=== PATIENT | female | born 1980 | race Caucasian/White ===

== ENCOUNTER 2024-09-08 09:07 | Emergency (ER) | payer MEDICAID ==
[~2024-09-08] VITALS: Ht 154.9 cm; Wt 58.9 kg
[~2024-09-08 09:07] MED LIST: COLACE; HYDR-3513
[2024-09-08 09:16] VITALS: O2SAT 100
[2024-09-08 09:27] VITALS: BP 129/69; PULSE 82; RESP 16; TEMP 98.2; O2SAT 98
[2024-09-08] MEDS ORDERED: METH-653 MT (09:58)
[2024-09-08] MEDS ORDERED: IBUPROFEN 600MG TABLET PO ONE (10:00)
[2024-09-08] MEDS: ACETAMINOPHEN 325MG TABLET PO ONE (10:33)
== END 2024-09-08 10:36 | disposition home or self-care (01) ==
LOC: ER 09:07
DX: M54.50 Low back pain, unspecified (principal)
CPT/HCPCS: 99283